=== PATIENT | female | born 1930 | race Caucasian/White ===

== ENCOUNTER 2018-02-02 09:57 | Emergency (ER) | payer OTHER, BC ==
[~2018-02-02] VITALS: Ht 170.2 cm; Wt 81.8 kg
[~2018-02-02 09:57] MED LIST: ADVIL200 MG PO; ALEVE220 MG PO; ASPIR 8181 M1 PO; ATORVASTATIN CA40 MG PO; CIPROFLOXACIN500 M1 PO; GLUCAGEN1 MG IM/SC; HYDROCODON-ACE1 EAC7 PO; JANUMET 50/11 TABLET PO; JANUMET 50/51 TABLET PO; LO-DOSE ASPIRIN81 M1 PO; LOSARTAN POTASS50 MG PO; LOVENOX40 MG/0.4 SC; MAG-AL PLUS SUS30 ML PO; METFORMIN HCL500 MG PO; MILK OF MAGNESI10 ML PO; NOVOLOG PE100 UNITS/ SC; ONDANSETRON HCL4 MG PO; PAROXETINE HCL20 MG PO; SENNA-TIME S T1 EACH PO; THERAGRAN1 TABLET PO; TOPROL XL25 MG PO; TYLENOL REGULA325 MG PO; VYTORIN 10/81 TABLET PO
[2018-02-02 10:33] LABS: HEMATOCRIT 33.9 % (36.0-46.0); HEMOGLOBIN 11.7 G/DL (11.9-15.5); MCH 32.7 PG (29.0-34.0); MCHC 34.5 G/DL (30.0-36.0); MCV 94.7 FL (83-99); PLATELET COUNT 183 K/uL (156-360); RBC DIS.WIDTH-CV 12.4 % (11.8-14.6); RBC DIS.WIDTH-SD 43.3 % (39-53); RED BLOOD COUNT 3.58 M/uL (3.80-5.20); WHITE BLOOD COUNT 9.9 K/uL (4.1-10.2)
[2018-02-02 10:42] LABS: CHLORIDE 106 mEq/L (99-109); SODIUM 138 mEq/L (136-147)
[2018-02-02 10:43] LABS: GLUCOSE 181 mg/dL (70-99)
[2018-02-02 10:47] LABS: CREATININE 1.4 mg/dL (0.6-1.3); GFR ESTIMATE (CALCULATED) 38 mL/min/
[2018-02-02 10:48] LABS: UREA NITROGEN (BUN) 34 mg/dL (9-23)
[2018-02-02 13:06] VITALS: BP 107/65
== END 2018-02-02 13:45 | disposition home or self-care (01) ==
LOC: EME 09:57
PROVIDERS: Emergency Medicine
DX: S70.01XA Contusion of right hip, initial encounter (principal); W18.30XA Fall on same level, unspecified, initial encounter; E11.9 Type 2 diabetes mellitus without complications; Z79.84 Long term (current) use of oral hypoglycemic drugs; E78.5 Hyperlipidemia, unspecified; I10 Essential (primary) hypertension; K21.9 Gastro-esophageal reflux disease without esophagitis; Z79.82 Long term (current) use of aspirin
CPT/HCPCS: 70450; 71045; 73502; 80048; 85027; 99281; 99284